=== PATIENT | male | born 1985 | race Caucasian/White ===

== ENCOUNTER → 2018-11-03 | Outpatient (CLI) | payer SELFPAY | LOC: M OUTALCOH 08:15 | PROVIDERS: ATTEND Psychiatry & Neurology Psychiatry | DX: Z13.9 Encounter for screening, unspecified (principal); F10.20 Alcohol dependence, uncomplicated ==

== ENCOUNTER 2018-12-15 10:00 | Outpatient (RCR) | payer SELFPAY | END 2018-12-18 | LOC: M OUTALCOH 10:00 | PROVIDERS: ATTEND Psychiatry & Neurology Psychiatry | DX: F10.20 Alcohol dependence, uncomplicated (principal); F17.200 Nicotine dependence, unspecified, uncomplicated ==

== ENCOUNTER → 2019-01-18 | Outpatient (RCR) | payer SELFPAY | LOC: M OUTALCOH 12-21 16:32 | PROVIDERS: ATTEND Psychiatry & Neurology Psychiatry | DX: F10.20 Alcohol dependence, uncomplicated (principal); F17.200 Nicotine dependence, unspecified, uncomplicated ==

== ENCOUNTER 2019-02-14 07:53 | Outpatient (RCR) | payer SELFPAY | END 2019-02-18 | LOC: M OUTALCOH 07:53 | PROVIDERS: ATTEND Psychiatry & Neurology Psychiatry | DX: F10.20 Alcohol dependence, uncomplicated (principal); F17.200 Nicotine dependence, unspecified, uncomplicated ==

== ENCOUNTER → 2019-03-20 | Outpatient (RCR) | payer SELFPAY | LOC: M OUTALCOH 02-27 15:00 | PROVIDERS: ATTEND Psychiatry & Neurology Psychiatry | DX: F10.20 Alcohol dependence, uncomplicated (principal); F17.200 Nicotine dependence, unspecified, uncomplicated ==

== ENCOUNTER 2019-04-10 14:45 | Outpatient (RCR) | payer SELFPAY | END 2019-04-20 | LOC: M OUTALCOH 14:45 | PROVIDERS: ATTEND Psychiatry & Neurology Psychiatry | DX: F10.20 Alcohol dependence, uncomplicated (principal); F17.200 Nicotine dependence, unspecified, uncomplicated ==

== ENCOUNTER 2023-09-08 11:56 | Emergency (ER) | payer OTHER, SELFPAY ==
[2023-09-08 11:56] VITALS: TEMP 97.6
[2023-09-08] MEDS ORDERED: SPIR100T3 (12:03)
[2023-09-08] MEDS ORDERED: ESTR20VI2 (12:03)
[2023-09-08] MEDS ORDERED: PROG1CAP8 (12:03)
[2023-09-08] MEDS ORDERED: IBUP-1022 PO (14:32)
[2023-09-08 14:58] VITALS: BP 118/64; O2SAT 98
== END 2023-09-08 14:59 | disposition home or self-care (01) ==
LOC: M ED 11:56
DX: M24.811 Other specific joint derangements of right shoulder, not elsewhere classified (principal); X50.0XXA Overexertion from strenuous movement or load, initial encounter; Z79.1 Long term (current) use of non-steroidal anti-inflammatories (NSAID); Z79.890 Hormone replacement therapy; Z79.899 Other long term (current) drug therapy; Y99.9 Unspecified external cause status

== ENCOUNTER → 2023-10-22 | Outpatient (CLI) | payer OTHER ==
[~2023-10-22] MED LIST: ESTR20VI2; IBUP-1022 PO; PROG1CAP8; SPIR100T3
== END ==
LOC: M PLAIMG 07:01
PROVIDERS: ATTEND Physician Assistant
DX: M25.511 Pain in right shoulder (principal)